=== PATIENT | female | born 1990 | race Caucasian/White ===

== ENCOUNTER 2019-09-16 09:42 | Emergency (ER) | payer MEDICAID, OTHER ==
[~2019-09-16] VITALS: Ht 162.6 cm; Wt 43.2 kg
[2019-09-16 10:33] VITALS: BP 113/95
[2019-09-16 12:38] LABS: URINE HCG NEGATIVE (NEG)
== END 2019-09-16 12:48 | disposition home or self-care (01) ==
LOC: ER 09:43
DX: J06.9 Acute upper respiratory infection, unspecified (principal); B97.89 Other viral agents as the cause of diseases classified elsewhere
CPT/HCPCS: 81025; 99283

== ENCOUNTER 2019-09-26 19:23 | Emergency (ER) | payer MEDICAID, OTHER ==
[~2019-09-26] VITALS: Ht 162.6 cm; Wt 47.7 kg
[2019-09-26] MEDS ORDERED: CefTRIAXone 1000mg IM Kit (w/lidocaine diluent) IM ONE (20:15)
[2019-09-26] MEDS ORDERED: acetaminophen 325mg tablet PO ONE (20:15)
[2019-09-26] MEDS ORDERED: azithromycin 250mg tablet PO ONE (20:15)
[2019-09-26] MEDS ORDERED: ondansetron 4mg rapidly disintigrating tab PO ONE (20:15)
--- NOTE | 2019-09-26 21:16 | NUR ---
Phoned lab to inquire about the results for lab work, some are pending and some are send out tests.
[2019-09-26 21:31] LABS: URINE HCG NEGATIVE (NEG)
[2019-09-26 21:39] LABS: COLOR,URINE YELLOW (Yellow); GLUCOSE, URINE NEGATIVE (Neg); KETONES,URINE TRACE mg/dl (Neg); LEUKOCYTE ESTERASE ,URINE MODERATE (Neg); NITRITES, URINE NEGATIVE (Neg); OCCULT BLOOD,URINE TRACE-INTACT (Neg); PH,URINE 6.5 (4.8-8.0); PROTEIN,URINE TRACE mg/dl (Neg)
[2019-09-26 21:45] LABS: UA COLLECTION TYPE NON-SPECIFIED
[2019-09-26 21:46] LABS: BACTERIA,URINE FEW /HPF (Neg); CLARITY,URINE SLIGHTLY CLOUDY (Clear); MUCUS STRANDS FEW /LPF (Neg); RBC,URINE 0-2 /HPF (0-2); SQUAMOUS EPITHELIAL CELL,UR FEW /LPF (FEW); WBC,URINE 30-50 /HPF (0-4)
[2019-09-26] MEDS ORDERED: MUPI22OI30 TOP (21:49)
[2019-09-26] MEDS ORDERED: CEPH500C5 PO (21:49)
[2019-09-26] MEDS ORDERED: ACYC-202 PO (21:49)
[2019-09-26 22:00] VITALS: BP 112/68
== END 2019-09-26 22:00 | disposition home or self-care (01) ==
LOC: ER 19:24
DX: N39.0 Urinary tract infection, site not specified (principal); F15.10 Other stimulant abuse, uncomplicated; H92.03 Otalgia, bilateral; N76.5 Ulceration of vagina; F17.200 Nicotine dependence, unspecified, uncomplicated; F10.99 Alcohol use, unspecified with unspecified alcohol-induced disorder; Z11.3 Encounter for screening for infections with a predominantly sexual mode of transmission; Z59.0 Homelessness; Z79.899 Other long term (current) drug therapy; Y90.9 Presence of alcohol in blood, level not specified
CPT/HCPCS: 36415; 81001; 81025; 86696; 87088; 87491; 87591; 96372; 99284; J0696